=== PATIENT | female | born 1970 | race Caucasian/White ===

== ENCOUNTER 2021-07-20 09:13 | Outpatient (CLI) | payer BC, OTHER | END 2021-07-20 09:14 | disposition home or self-care (01) | LOC: TBSIIMAG 09:13 | PROVIDERS: ATTEND Physician Assistant | DX: S32.000D Wedge compression fracture of unspecified lumbar vertebra, subsequent encounter for fracture with routine healing (principal) | CPT/HCPCS: 72100 ==

== ENCOUNTER 2021-08-30 13:07 | Outpatient (CLI) | payer BC | END 2021-08-30 13:08 | disposition home or self-care (01) | LOC: TBSIIMAG 13:07 | PROVIDERS: ATTEND Neurological Surgery | DX: S32.009D Unspecified fracture of unspecified lumbar vertebra, subsequent encounter for fracture with routine healing (principal) | CPT/HCPCS: 72100 ==